=== PATIENT | male | born 1940 | race Caucasian/White ===

== ENCOUNTER 2020-10-28 11:54 | Emergency (ER) | payer MEDICARE ==
[2020-10-28 13:29] LABS: BASOPHIL 0.4 % (0-2); EOSINOPHIL 0.9 % (0-7); HGB 16.8 g/dl (13.2-18.0); LYMPHOCYTE 12.5 % (15-48); MCHC 33.6 g/dL (32.0-36.0); MCV 95.2 fL (78.0-100.0); MPV 10.8 fL (6.0-9.5); NEUTROPHIL 77.9 % (41-80); NRBC 0; PLT 172 K/uL (150-400); RBC 5.25 M/uL (4.70-6.00); RDW 13.1 % (11.5-14.0)
[2020-10-28 13:39] LABS: ALBUMIN 3.9 g/dL (3.4-5.0); BILIRUBIN - TOTAL 0.5 mg/dL (0.2-1.0); BUN/CREAT RATIO (CALC) 20.9 RATIO; CREATININE 0.91 mg/dL (0.67-1.17); TOTAL PROTEIN 7.9 g/dL (6.4-8.2)
[2020-10-28 14:05] LABS: BILIRUBIN NEGATIVE (NEGATIVE); BLOOD NEGATIVE Ery/uL (NEGATIVE); CLARITY CLEAR (CLEAR); COLOR YELLOW (YELLOW); GLUCOSE (U) NORMAL (NORMAL); LEUKOCYTES NEGATIVE Leu/uL (NEGATIVE); NITRITE NEGATIVE (NEGATIVE); PROTEIN NEGATIVE (NEGATIVE); SPECIFIC GRAVITY <=1.005 (1.001-1.030); UROBILINOGEN 0.2 mg/dL (0.2-1.0); pH 6.5 (5.0-9.0)
[2020-10-28] MEDS ORDERED: ANTIVERT12.5 MG PO (14:27)
[2020-10-28 18:43] LABS: POTASSIUM 4.3 mmol/L (3.5-5.1)
== END 2020-10-28 16:14 | disposition home or self-care (01) ==
LOC: FER 11:54
PROVIDERS: Emergency Medicine
DX: R42 Dizziness and giddiness (principal); H91.93 Unspecified hearing loss, bilateral; E87.1 Hypo-osmolality and hyponatremia; I10 Essential (primary) hypertension; Z79.899 Other long term (current) drug therapy
CPT/HCPCS: 36415; 70450; 80053; 81003; 83930; 83935; 84300; 84484; 85025; 93005; J7030

== ENCOUNTER 2021-09-29 20:33 | Emergency (ER) | payer MEDICARE ==
[~2021-09-29 20:33] MED LIST: ANTIVERT12.5 MG PO
== END 2021-09-29 22:10 | disposition home or self-care (01) ==
LOC: FER 20:33
DX: I10 Essential (primary) hypertension (principal); Z79.899 Other long term (current) drug therapy
CPT/HCPCS: 99284